=== PATIENT | male | born 1965 | race Caucasian/White ===

== ENCOUNTER 2018-08-13 10:05 | Emergency (ER) | payer OTHER ==
[~2018-08-13] VITALS: Ht 190.5 cm; Wt 117.9 kg
[2018-08-13] MEDS ORDERED: ZOFRAN ODT4 MG DISSOLVE (10:18)
[2018-08-13] MEDS ORDERED: PHENERGAN 25 MG25 M1 PO (10:18)
[2018-08-13 11:11] LABS: ABSOLUTE BASOPHILS 0.1 thou/uL (0.0-0.2); ABSOLUTE EOSINOPHILS 0.1 thou/uL (0.0-0.7); ABSOLUTE LYMPHOCYTES 2.2 thou/uL (0.8-5.3); ABSOLUTE MONOCYTES 1.1 thou/uL (0.0-1.2); ABSOLUTE NEUTROPHILS 6.6 thou/uL (1.6-8.1); BASOPHILS 0.6 %; EOSINOPHILS 0.9 %; LYMPHOCYTES 22.1 %; MCH 28.2 pg (26.0-34.0); MCHC 33.3 g/dL (28.0-37.0); MCV 84.8 fL (80.0-100.0); MONOCYTES 10.7 %; MPV 9.1 fl. (7.2-11.1); NUCLEATED RBCS 0 /100WBC; PLATELET COUNT* 147 thou/uL (150-400); POLYS 65.7 %; RBC 5.31 mil/uL (4.50-6.00); RDW-CV 13.6 % (10.5-14.5); WBC 10.1 thou/uL (4.0-11.0)
[2018-08-13 11:17] LABS: CALCIUM 8.9 mg/dL (8.5-10.1); CREATININE 0.9 mg/dL (0.6-1.3)
[2018-08-13 11:22] LABS: ALBUMIN 3.5 g/dL (3.4-5.0); TOTAL BILIRUBIN 0.3 mg/dL (<0.1-1.0); TOTAL PROTEIN 6.9 g/dL (6.4-8.2)
[2018-08-13 11:24] LABS: POTASSIUM 4.1 mmol/L (3.5-5.1)
[2018-08-13 11:34] LABS: APTT 23.3 Seconds (25.0-31.3); INR 0.9; PROTIME 9.7 Seconds (9.20-11.50)
[2018-08-13] MEDS ORDERED: XARELTO1 EACH PO (11:37)
[2018-08-13 12:07] VITALS: BP 129/85
[2018-08-13 12:16] LABS: ESR (SEDRATE) 2 mm/hr (0-20)
== END 2018-08-13 12:10 | disposition home or self-care (01) ==
LOC: M.ERS 10:05
PROVIDERS: Nurse Practitioner Family
DX: I82.621 Acute embolism and thrombosis of deep veins of right upper extremity (principal); Z45.2 Encounter for adjustment and management of vascular access device; Z85.89 Personal history of malignant neoplasm of other organs and systems

== ENCOUNTER 2020-05-19 12:21 | Emergency (ER) | payer OTHER ==
[~2020-05-19] VITALS: Ht 182.9 cm; Wt 99.8 kg
[~2020-05-19 12:21] MED LIST: PHENERGAN 25 MG25 M1 PO; XARELTO1 EACH PO; ZOFRAN ODT4 MG DISSOLVE
[2020-05-19 12:42] LABS: HEMATOCRIT 44.9 % (42.0-52.0); HEMOGLOBIN 14.8 gm/dL (14.0-18.0); MCH 27.8 pg (26.0-34.0); MCHC 32.9 g/dL (28.0-37.0); MCV 84.5 fL (80.0-100.0); MPV 8.9 fl. (7.2-11.1); NUCLEATED RBCS 0 /100WBC; PLATELET COUNT* 180 thou/uL (150-400); RBC 5.31 mil/uL (4.50-6.00); RDW-CV 13.8 % (10.5-14.5); WBC 12.3 thou/uL (4.0-11.0)
[2020-05-19 12:54] LABS: APTT 26.2 Seconds (25.0-31.3); CALCIUM 9.3 mg/dL (8.5-10.1); CREATININE 1.2 mg/dL (0.6-1.3); POTASSIUM 3.7 mmol/L (3.5-5.1); PROTIME 10.2 Seconds (9.20-11.50)
[2020-05-19 13:13] LABS: ABSOLUTE LYMPHOCYTES 1.5 thou/uL (0.8-5.3); ABSOLUTE MONOCYTES 0.5 thou/uL (0.0-1.2); ABSOLUTE NEUTROPHILS 10.3 thou/uL (1.6-8.1); PLATELET ESTIMATE ADEQUATE
[2020-05-19 13:20] LABS: ALBUMIN 4.2 g/dL (3.4-5.0); CK-MB MASS 2.4 ng/mL (<0.5-3.6); MAGNESIUM 2.1 mg/dL (1.8-2.4); TOTAL BILIRUBIN 0.7 mg/dL (<0.1-1.0); TOTAL PROTEIN 7.6 g/dL (6.4-8.2)
--- NOTE | 2020-05-19 14:44 | EKG ---
[place] [address] ELECTROCARDIOGRAM REPORT Name: NIKKI CHUNG Room: [facility]#: [id number] Admission: 05/19/20 Attend Phys: Discharge: Date of : 65 Date of Service: 05/19/20 1226 Report #: [id number] THIS REPORT FOR: //name// [facility] ED Test Date: 2020-05-19 Test Time: 12:26:49 Pat Name: NIKKI CHUNG Department: Room: Gender: [employer] Driver: [facility] : 1965 Requested By: Zach Johnson Order Number: [id number] MD: Emir Dumont Measurements Intervals [place] Rate: 101 P: 64 MI: 153 QRS: 82 QRSD: 114 T: 30 QT: 340 QTc: 441 Interpretive Statements Sinus tachycardia Probable left atrial enlargement Incomplete right bundle branch block No previous ECG available for comparison Electronically Signed On 05-19-2020 14:44:18 CDT by Emir Dumont [email or web address] <ELECTRONICALLY SIGNED> By: Emir Dumont MD, [facility] 05/19/20 1444 1226 1226 Emir Dumont MD, FACC /EPI
[2020-05-19] MEDS ORDERED: NORCO 5-325 TA1 EAC2 PO (17:41)
[2020-05-19] MEDS ORDERED: BACTRIM DS TAB1 EACH PO (17:41)
[2020-05-19 17:48] VITALS: BP 140/80
--- NOTE | 2020-05-20 07:56 | EXE ---
[place] [address] STRESS ECHOCARDIOGRAM Name: NIKKI CHUNG [id number] Admission: 05/19/20 Attend Phys: Discharge: 05/19/20 Date of : 65 Date of Service: 05/20/20 0756 Report #: [id number] THIS REPORT FOR: cc: FAM - No family physician/PCP FAM - No family physician/PCP Emir Dumont MD [facility] ~ ADDENDUM APPROVED REPORT Study performed: 05/19/2020 16:32:38 Exam: Stress Echocardiogram Indication: Chest pain Patient Location: In-Patient Stress Nurse: Chantel Vázquez RN Room #: Supervising Physician: Emir Dumont MD Ht: 6 ft 3 in HR: 74 bpm BP: 150/98 mmHg Medical History Cardiac Risk Factors: Age, , Tobacco History (Former), FHX of CAD Procedure The patient underwent an Exercise Stress Test using the Oniel Protocol. Blood pressure, heart rate, and EKG were monitored. An Echocardiogram was performed by biomedical technician in four stages in quad fashion. At peak stress, four selected images were obtained and placed side by side with resting images for comparison. Stress Test Details Stress Test: Exercise stress testing was performed using a Oniel protocol. HR Resting HR: 74 bpm Max Heart Rate (APMHR): 165 bpm Max HR Achieved: 156 bpm Target HR (85% APMHR): 140 bpm % of APMHR: 94 Recovery HR: 103 bpm HR response to stress: Normal HR response to stress BP Resting BP: 150/98 mmHg Max BP: 208/[address] [address] STRESS ECHOCARDIOGRAM Name: MADELYN CHUNGGian MORGAN Room: [facility]#: [id number] Admission: 05/19/20 Attend Phys: Discharge: 05/19/20 Date of : 65 Date of Service: 05/20/20 0756 Report #: [id number] Recovery BP: 169/96 mmHg BP response to stress: Normal blood pressure response to stress. ECG Resting ECG: Sinus Rhythm Stress ECG: Sinus Tachycardia ST Change: Normal Maximum ST Deviation: 0 mm Arrhythmia: APC's Recovery ECG: Sinus Rhythm Recovery ST Change: Normal Recovery ST Deviation: 0 mm Recovery Arrhythmia: None Clinical Reason for Termination: Completed protocol Exercise duration: 12 min 13 sec Highest Stage Achieved: Stage 5: 5.0 mph at 18% grade. Exercise capacity: 13.55 METs Pre-Stress Echo The resting Echocardiogram showed normal left ventricular contractility with an estimated Ejection Fraction of about 60-65%. Post-Stress Echo The stress Echocardiogram showed normal left ventricular contractility with an estimated Ejection Fraction of about >70%. Compared to rest, there were no stress-induced wall motion abnormalities. Conclusion Clinical Response: Non-ischemic Exercise Capacity: Superior Stress ECG Response: Non-ischemic Stress Echo Images: Non-ischemic low risk stress echo for predicting future cardiac events Other Information Study Quality: [place] [address] STRESS ECHOCARDIOGRAM Name: NIKKI CHUNG Room: [facility] Young#: [id number] Admission: 05/19/20 Attend Phys: Discharge: 05/19/20 Date of : 65 Date of Service: 05/20/20 0756 Report #: [id number] <Conclusion> low risk stress echo for predicting future cardiac events <ELECTRONICALLY SIGNED> By: Emir Dumont MD, FACC 05/20/20 0756 0756 075 Emir Dumont MD, FACC /INF
== END 2020-05-19 17:48 | disposition home or self-care (01) ==
LOC: M.ERS 12:21
PROVIDERS: Family Medicine
DX: L02.512 Cutaneous abscess of left hand (principal); R07.89 Other chest pain; Z20.828 Contact with and (suspected) exposure to other viral communicable diseases